=== PATIENT | female | born 1985 | race Caucasian/White ===

== ENCOUNTER 2016-09-06 02:45 | Outpatient (CLI) | payer OTHER ==
[~2016-09-06 02:45] MED LIST: FERROUS SULFAT325 MG PO; KEFLEX500 MG PO; PRENATAL TABLE1 EAC3 PO; Tylenol Extra Streng PO
[2016-09-06 03:07] VITALS: BP 109/73
[2016-09-06 05:02] LABS: ADD MIUA? NO; BILIRUBIN NEGATIVE; BLOOD NEGATIVE; COLOR STRAW ((YELLOW)); GLUCOSE (STRIP) NEGATIVE; KETONES 20; LEUKOCYTES NEGATIVE; NITRITE NEGATIVE; PROTEIN (STRIP) NEGATIVE; SPECIFIC GRAVITY 1.004 (1.000-1.030); UROBILINOGEN 0.2 MG/DL (0.2-1.0)
[2016-09-06 05:07] VITALS: BP 103/64
[2016-09-06 05:15] LABS: DRSB INTERNAL CONTROL PASS; PROBE CHECK PASS; SPECIMEN PROCESSING CONTROL PASS
[2016-09-06 05:17] LABS: CANDIDA DNA PROBE NEGATIVE; GARDNERELLA DNA PROBE NEGATIVE; INTERNAL CONTROL VALID? YES
[2016-09-06 06:52] VITALS: BP 107/62
[2016-09-06] MEDS ORDERED: BETAMETHASO IM (08:57)
== END 2016-09-06 09:45 | disposition home or self-care (01) ==
LOC: LDRP-OP 02:45 → 2WEST 02:46 → LDRP-OP 12-09 02:45
PROVIDERS: Advanced Practice Midwife; Obstetrics & Gynecology
DX: O47.03 False labor before 37 completed weeks of gestation, third trimester (principal); O99.89 Other specified diseases and conditions complicating pregnancy, childbirth and the puerperium; Z3A.30 30 weeks gestation of pregnancy
CPT/HCPCS: 59025; 81003; 82731; 87081; 87086; 87480; 87510; 87653; 87660; G0378; J0702; J3105; J7120

== ENCOUNTER 2016-11-02 08:08 | Inpatient (IN) | payer OTHER ==
[~2016-11-02] VITALS: Ht 170.2 cm; Wt 68.6 kg
[2016-11-02] VITALS (22 sets, daily range): BP systolic 80–137; BP diastolic 37–72
[~2016-11-02 08:08] MED LIST changes: +BETAMETHASO IM
[2016-11-02 09:42] LABS: EOSINOPHIL (%) 0.8 % (0-5); EOSINOPHIL COUNT 0.1 K/uL (0-0.3); HEMATOCRIT 30.8 % (36.0-46.0); IMMATURE GRANULOCYTE (%) 0.3 % (0.0-0.7); INSTRUMENT ABS NEUTROPHIL CT 5.6 K/uL; LYMPHOCYTE COUNT 1.2 K/uL (1.0-2.8); MCH 25.9 PG (29.0-34.0); MCHC 31.8 G/DL (30.0-36.0); MCV 81.3 FL (83-99); MEAN PLAT.VOLUME 10.3 uM^3 (9.5-12.4); MONOCYTE (%) 6.8 % (3-12); MONOCYTE COUNT 0.5 K/uL (0-0.8); NEUTROPHIL (%) 75.2 % (45-76); NEUTROPHIL COUNT 5.6 K/uL (1.8-6.4); PLATELET COUNT 280 K/uL (156-360); RBC DIS.WIDTH-CV 17.2 % (11.8-14.6); RBC DIS.WIDTH-SD 50.6 % (39-53); RED BLOOD COUNT 3.79 M/uL (3.80-5.20); WHITE BLOOD COUNT 7.4 K/uL (4.1-10.2)
[2016-11-03] VITALS (7 sets, daily range): BP systolic 95–116; BP diastolic 57–62
[2016-11-04 00:04] VITALS: BP 106/57
[2016-11-04 07:19] LABS: EOSINOPHIL (%) 1.9 % (0-5); EOSINOPHIL COUNT 0.2 K/uL (0-0.3); IMMATURE GRANULOCYTE (%) 0.5 % (0.0-0.7); IMMATURE GRANULOCYTE COUNT 0.1 K/uL; INSTRUMENT ABS NEUTROPHIL CT 7.5 K/uL; LYMPHOCYTE COUNT 1.9 K/uL (1.0-2.8); MCH 25.5 PG (29.0-34.0); MCHC 30.8 G/DL (30.0-36.0); MCV 82.8 FL (83-99); MEAN PLAT.VOLUME 10.2 uM^3 (9.5-12.4); MONOCYTE (%) 8.2 % (3-12); MONOCYTE COUNT 0.9 K/uL (0-0.8); NEUTROPHIL (%) 71.2 % (45-76); NEUTROPHIL COUNT 7.5 K/uL (1.8-6.4); PLATELET COUNT 226 K/uL (156-360); RBC DIS.WIDTH-CV 17.5 % (11.8-14.6); RBC DIS.WIDTH-SD 52.7 % (39-53); RED BLOOD COUNT 3.14 M/uL (3.80-5.20); WHITE BLOOD COUNT 10.5 K/uL (4.1-10.2)
[2016-11-04 07:48] VITALS: BP 102/64
[2016-11-04 15:16] VITALS: BP 119/72
[2016-11-05 07:36] VITALS: BP 136/67
== END 2016-11-05 12:26 | disposition home or self-care (01) | DRG 775 ==
LOC: LDRP-OP 08:08 → 2WEST 08:09 → LDRP-OP 19:41 → 2WEST 11-03 01:30 → LDRP-OP 12-09 10:21
PROVIDERS: Advanced Practice Midwife
PROC: 3E0R3CZ (ICD-10-PCS; principal; 2016-11-03)
PROC: 10E0XZZ Delivery of Products of Conception, External Approach (ICD-10-PCS; principal; 2016-11-03)
PROC: 3E0K7GC Introduction of Other Therapeutic Substance into Genitourinary Tract, Via Natural or Artificial Opening (ICD-10-PCS; principal; 2016-11-03)
PROC: 00HU33Z Insertion of Infusion Device into Spinal Canal, Percutaneous Approach (ICD-10-PCS; principal; 2016-11-03)
PROC: 3E033VJ Introduction of Other Hormone into Peripheral Vein, Percutaneous Approach (ICD-10-PCS; principal; 2016-11-03)
PROC: 0UQMXZZ Repair Vulva, External Approach (ICD-10-PCS; principal; 2016-11-03)
DX: O69.1XX0 Labor and delivery complicated by cord around neck, with compression, not applicable or unspecified (principal); O69.2XX0 Labor and delivery complicated by other cord entanglement, with compression, not applicable or unspecified; O70.0 First degree perineal laceration during delivery; O76 Abnormality in fetal heart rate and rhythm complicating labor and delivery; Z37.0 Single live birth; Z3A.39 39 weeks gestation of pregnancy
CPT/HCPCS: 85025; C1755; G0378; J2405; J3010; J7120